=== PATIENT | male | born 1960 | race Caucasian/White ===

== ENCOUNTER 2024-12-30 18:04 | Inpatient (IN) | payer BC ==
[~2024-12-30] VITALS: Ht 167.6 cm; Wt 105.2 kg
--- NOTE | 2024-12-30 18:13 | ELECTROCARDIOGRAPH REPORT ---
[facility] Test Date: 2024-12-30 Test Time: 18:11:15 Pat Name: DARRICK VELEZ Department: EMERGENCY ROOM Room: Gender: M Dump Grader: RAI : 1960 Requested By: OTIS BUSH Order Number: [id number] Reading MD: Measurements Intervals [place] Rate: 91 P: 69 ME: 110 QRS: 70 QRSD: 85 T: 8 QT: 353 QTc: 435 Interpretive Statements Sinus rhythm Borderline short ME interval Low voltage, precordial leads Please click the below link to view image of tracing.
--- NOTE | 2024-12-30 18:31 | RADIOLOGY REPORT ---
CHEST RADIOGRAPH Indication: CP Technique: DI CHEST,SINGLE VIEW Comparison: None FINDINGS: The cardiac silhouette is unremarkable. The lungs demonstrate no pulmonary airspace consolidation. Th e pulmonary vasculature is unremarkable. There is no pleural effusion. There is no pneumothorax. IMPRESSION: No pulmonary airspace consolidation.
--- NOTE | 2024-12-30 18:34 | Physician Documentation ---
History of Present Illness ~ Chief Complaint: Chest Pain Stated Complaint: CHEST PAIN Time Seen by MD: 19:37 HPI This is a 64-year-old male with a history of CAD who presents with two days of chest pain onset after exercise yesterday. Patient admits to cardiac stent placed about seven years ago. Patient states he started having worsening chest pain after he walked down the steps of a doc and then tried to walk back up and felt very short of breath and had exertional chest pain at that time that did resolve mostly with rest. Patient states he does still have some chest pain in the lower left side of his chest. Patient has no other concern or complaint at this time. Medication Reconciliation Allergies: Coded Allergies: niacin (Verified Allergy, Unknown, 12/30/24) Scheduled Abiraterone Acetate (Zytiga), 4 TAB PO DAILY, (Reported) Abiraterone Acetate (Zytiga), 4 TAB PO DAILY, (Reported) Amlodipine Besylate/Benazepril 10/40 MG* (Amlodipine-Benazepril 10/40 MG*), 1 CAP PO DAILY, (Reported) Apremilast (Otezla), 1 TAB PO Q12H, (Reported) Aspirin (Aspirin), 1 TAB PO DAILY, (Reported) Bupropion Hcl SR* (Wellbutrin SR*), 2 TAB PO Q12H, (Reported) Carvedilol* (Coreg*), 1 TAB PO Q12H, (Reported) Clobetasol Propionate/Emoll (Clobetasol Emollient 0.05% Crm), 1 APPLIC TOP Q12H, (Reported) Lisinopril* (Lisinopril*), 1 TAB PO DAILY, (Reported) Naproxen (Naproxen), 1 TAB PO DAILY, (Reported) Omeprazole (Prilosec), 1 CAP PO DAILY, (Reported) Prednisone* (Prednisone*), 1 TAB PO DAILY, (Reported) Rosuvastatin Calcium (Rosuvastatin Calcium), 1 TAB PO HS, (Reported) Semaglutide (Ozempic), 2 MG SUBCUT Q7D, (Reported) Scheduled PRN Diazepam (Diazepam), 1 TAB PO Q12H PRN PRN for anxiety, (Reported) ONDANSETRON ODT 4mg tablet (Ondansetron Odt), 1 TAB PO Q6H PRN PRN for nausea/vomiting, (Reported) Oxycodone Hcl IR* (Oxycodone IR*), 1 TAB PO Q12H PRN PRN for pain, (Reported) Miscellaneous Medications Cyanocobalamin (Vitamin B-12) (Vitamin B12), (Reported) Past Medical History Past Medical History: *CARDIOVASCULAR* Review of Systems ROS As stated above in the HPI, otherwise all systems are reviewed and negative. Constitutional: Denies: chills, fever, weakness Eyes: Denies: pain, blurred vision ENT: Denies: ear pain, nose pain, throat pain, mouth pain Respiratory: Denies: cough, shortness of breath Cardiovascular: Denies: chest pain, palpitations Gastrointestinal: Denies: abdominal pain, nausea, vomiting Genitourinary: Denies: burning, dysuria Male Genitalia: Denies: penile discharge, testicular pain Neurological: Denies: headache, dizziness Musculoskeletal: Denies: pain, swelling Integumentary: Denies: rash, lesions Allergic/Immunologic: Denies: hives, itching Hematologic/Lymphatic: Denies: no symptoms reported Psychiatric: Denies: depression, anxiety Physical Exam Vital Signs: Temperature: 98.5, Source: Temporal, Heart Rate: 90, Respiratory Rate: 16, BP: 187/101, Pulse Oximetry: 99, Weight: 93.000 Oxygen Flow Rate: 0 Physical Exam General: Awake and Alert, no acute distress. HEENT: Conjunctiva pink, Sclera clear, Mucus Membranes moist. Neck: Supple without masses and tenderness. Resp: Unlabored. Lungs clear to auscultation bilaterally. Heart: Regular Rate and rhythm, normal S1 and S2 without murmur, rub or gallop. Abdomen: Soft and non tender no organomegaly Extremities: No cyanosis,clubbing or edema. Skin: Warm and Dry. Progress Results/Orders Results/Orders Orders - ROBINA DIAMOND Hospitalist (12/30/24 20:36) Fill Out Med Reconciliation (12/30/24 20:36) Medications Received in ER Medications (Trade) Dose Ordered Sig/Tierney Route PRN Reason Start Time Stop Time Status Last Admin Dose Admin (Tylenol tablet) 650 mg Q6H PRN PO Fever above 101 12/30/24 21:10 12/30/24 22:35 650 MG Vital Signs 12/30/24 12/30/24 12/30/24 12/30/24 18:08 19:30 19:30 21:10 Temp 98.5 Pulse 90 84 80 Resp 16 18 18 16 B/P (MAP) 187/101 165/95 (118) 146/87 (106) Pulse Ox 99 99 99 O2 Flow Rate 0 0 0 Laboratory Tests Test 12/30/24 18:21 12/30/24 19:52 12/30/24 20:44 White Blood Count 7.8 Red Blood Count 4.56 L Hemoglobin 13.1 L Hematocrit 39.3 L Mean Corpuscular Volume 86.1 Mean Corpuscular Hemoglobin 28.7 Mean Corpuscular Hemoglobin Concent 33.3 Red Cell Distribution Width 16.0 H Platelet Count 232 Mean Platelet Volume 8.6 Neutrophils (%) (Auto) 73.6 Lymphocytes (%) (Auto) 17.5 L Monocytes (%) (Auto) 7.9 Eosinophils (%) (Auto) 0.4 Basophils (%) (Auto) 0.6 Neutrophils # (Auto) 5.8 Lymphocytes # (Auto) 1.4 Monocytes # (Auto) 0.6 Eosinophils # (Auto) 0.0 Basophils # (Auto) 0.0 CBC Comment Sodium Level 144 Potassium Level 3.9 Chloride Level 106 Carbon Dioxide Level 28.8 Anion Gap 9 Blood Urea Nitrogen 19 H Creatinine 1.00 Estimated GFR/1.73 m2 76 BUN/Creatinine Ratio 19.0 Glucose Level 105 H Hemoglobin A1c 5.3 Calcium Level 10.1 Troponin I High Sensitivity 19 22 22 Pro-B-Type Natriuretic Peptide 216 H Albumin 4.0 Triglycerides Level 105 Cholesterol Level 114 LDL Cholesterol 46 L HDL Cholesterol 48 Cholesterol/HDL Ratio 2.4 Chemistry Comments Troponin I High Sens Percent Delta 15 0 Troponin I Hi Sens Absolute Change 3 0 Heart Score: Heart Score Response (Comments) Value History Moderate Suspicious 1 Age 45-64 1 Risk Factors >3 or Hx ASHD 2 Troponin 1-2 x's Normal limit 1 Total 5 Medical Decision Making Findings This is a 64-year-old male with a history of CAD who presents with two days of chest pain onset after exercise yesterday. Patient admits to cardiac stent placed about seven years ago. Patient states he started having worsening chest pain after he walked down the steps of a doc and then tried to walk back up and felt very short of breath and had exertional chest pain at that time that did resolve mostly with rest. Patient states he does still have some chest pain in the lower left side of his chest. Patient has no other concern or complaint at this time. Patient did have heart score of five. Patient's troponins did trend upwards from 19-22 with pro BNP being just over 200. Hospitalist was consulted and patient was admitted for further eval and treatment. Departure Disposition: ADMITTED INPATIENT Admitted to Inpatient Unit: to hospitalist Impression: Primary Impression: Chest pain Qualified Codes: R07.9 - Chest pain, unspecified Condition: Stable Discharge Instructions: Nonspecific Chest Pain, Adult Additional Instructions: Patient did have heart score of five. Patient's troponins did trend upwards from 19-22 with pro BNP being just over 200. Hospitalist was consulted and patient was admitted for further eval and treatment. 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
[2024-12-30 18:45] LABS: MEAN PLATELET VOLUME 8.6 FL (7.4-10.4); RED CELL DISTRIBUTION WIDTH 16.0 % (11.5-14.5)
[2024-12-30 19:13] LABS: CREATININE 1.00 MG/DL (0.60-1.10); PRO BRAIN NATRIURETIC PEPTIDE 216 PG/ML (0-125); TOTAL CARBON DIOXIDE 28.8 MMOL/L (24-32); eCRCL 69 ML/MIN; eGFR 76 ML/MIN
[2024-12-30] MEDS ORDERED: HYDROcodone/acetaminophen 5mg/325mg tablet PO PRN (21:10)
[2024-12-30] MEDS ORDERED: potassium Cl 40MEQ/1/2NS 520ml 520 ML IV PRN (21:10)
[2024-12-30] MEDS ORDERED: HYDROcodone/acetaminophen 10/325mg tab PO PRN (21:10)
[2024-12-30] MEDS ORDERED: magnesium sulf-water 4G/100mL 100 ML IV PRN (21:10)
[2024-12-30] MEDS ORDERED: magnesium hydroxide 30ml (MOM) UD suspension PO PRN (21:10)
[2024-12-30] MEDS ORDERED: magnesium sulf-water 2g/50mL 50 ML IV PRN (21:10)
[2024-12-30] MEDS ORDERED: potassium Cl 20 mEq SR tablet PO PRN (21:10)
[2024-12-30] MEDS ORDERED: magnesium Cl slow-release 64mg tablet PO PRN (21:10)
[2024-12-30] MEDS ORDERED: ondansetron/PF 4mg/2ml inj IV PRN (21:10)
[2024-12-30] MEDS ORDERED: mag hydrox/Alum hydrox/simeth 30ml oral suspension PO PRN (21:10)
[2024-12-30] MEDS ORDERED: aminophylline 250mg/10ml inj. IV PRN (22:05)
[2024-12-30] MEDS ORDERED: metoprolol tartrate 1mg/ml inj IV PRN (22:05)
--- NOTE | 2024-12-30 22:17 | HISTORY AND PHYSICAL-Residence ---
History & Physical Providers to CC Resident Creating Document: TISHA WHITNEY RES ~ History of Present Illness Reason for Admit\Complaint: chest discomfort History of Present Illness This is a 64-year-old male with past medical history of coronary artery disease, hypertension, hyperlipidemia, type 2 diabetes, psoriatic arthritis, prostate cancer status post resection came to the ER in view of chest discomfort after exertion. His chest discomfort started yesterday after he climbed up and down 100 steps. It lasted for a few hours associated with diaphoresis and palpitation. 2/10 on the pain scale, nonradiating, no nausea, dizziness, SOB, cough, headache. He had a similar episode today while he was working on his boat. 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, chemotherapy and radiotherapy Bilateral renal stones MRSA infection-resolved Past Surgical History Surgical History Comment Right testicle removed due to a benign cyst Prostate resection for prostate cancer Bilateral knee surgeries after an accident Past Social History Smoking: Non-Smoker Alcohol Use: Rarely (1-2 drinks a month) Drug Use: None Lives with: Spouse Lives In: Home Domestic Violence: Neg ROS Constitutional: Reports: no symptoms reported Eyes: Reports: no symptoms reported ENT: Reports: no symptoms reported Respiratory: Reports: no symptoms reported Cardiovascular: Reports: chest pain, diaphoresis, palpitations Gastrointestinal: Reports: no symptoms reported Genitourinary: Reports: no symptoms reported Male Genitalia: Reports: no symptoms reported Neurological: Reports: no symptoms reported Musculoskeletal: Reports: no symptoms reported Integumentary: Reports: no symptoms reported Allergic/Immunologic: Reports: no symptoms reported Hematologic/Lymphatic: Reports: no symptoms reported Endocrine: Reports: no symptoms reported Psychiatric: Reports: no symptoms reported Exam Vitals: Vital Signs Date Time Temp Pulse Resp B/P (MAP) Pulse Ox O2 Delivery O2 Flow Rate FiO2 12/30/24 21:25 12/30/24 21:10 80 16 99 0 12/30/24 18:08 98.5 General: General: Well alert, well oriented, not confused, not agitated, not in acute distress, well cooperated during the physical. HEENT: Conjunctive are pink, sclerae clear, no icterus, pupil is equal in both sides, reactive to light, no ear discharge, no pharyngeal erythema or an edema, mouth and lips are dry. Neck: Supple, no JVD, no lymphadenopathy and thyromegaly. Lungs:Equal air entry on both lungs, no additional sounds Heart: S1-S2 regular sinus rhythm and, regular rate, no gallops, no rubs, no murmurs Abdomen: Normal, no guarding no rigidity on deep palpation, no organomegaly No visible peristalsis. Normal bowel sounds Extremities: No obvious deformities, , capillary refill intact, able to wiggle toes both sides, peripheral pulsations are intact on both sides. 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: No focal neurological deficits, no motor and sensory weakness in all 4 extremities, could move all 4 extremities Musculoskeletal: No joint swelling, deformities, inflammations, and no scoliosis and back tenderness Skin: No active skin lesions and rashes Diagnostic Data Last Recorded Lab Results: 12/30/24 1821 12/30/24 182 Counseling Services Smoking & Tobacco Cessation: N/A Advance Care Planning Advanced Care plannin - 30 Minutes (Full code) Additional Plan Assessment:This is a 64-year-old male with past medical history of coronary artery disease, hypertension, hyperlipidemia, type 2 diabetes, psoriatic arthritis, prostate cancer status post resection came to the ER in view of chest discomfort after exertion. Plan: Coronary vascular disease-stable angina Hypertension HEART-3 Chest discomfort on exertion Vitals: Systolic blood pressure ranging from 180s to 150s, heart rate 80s Serial Troponin 19, 22, 22, NT proBNP-216 EKG- no ST-elevation, normal T-wave morphology Chest x-ray- No pulmonary airspace consolidation. Plan: Ordered echo Continue home medication amlodipine 10 mg p.o. daily, carvedilol 12.5 mg p.o. daily, lisinopril 40 mg p.o. daily, aspirin 81 mg p.o. daily Started Lasix 20 mg IV b.i.d. in view of leg swelling Nitro patch 0.4 mg once in view of chest discomfort Input and output monitoring, monitor vitals Ordered Lexiscan for tomorrow, NPO from midnight Type 2 diabetes mellitus Ordered HB A1c Continue home semaglutide 2 g Pen once a week Metastatic prostate cancer s/p resection and radiotherapy. Currently on chemotherapy pills, Continue home med Zytiga 4 pills Daily, Augemilast p.o. daily, lupron shot daily. Small nodule seen on the kidney in the last MRI done one month ago, scheduled for cryoablation and biopsy outpatient Hyperlipidemia Ordered lipid panel Continue rosuvastatin 10 mg p.o. daily Psoriatic arthritis In admission, no active symptoms. Code status: Full code DVT prophylaxis: SCDs Analgesia/sedation: Morphine/Michael as needed Lines/tubes: PIV GI prophylaxis: None Nutrition: 75 g carb controlled diet PT: Ordered Prognosis: Guarded Disposition: Admit to telemetry/PCU Tisha Whitney MD Internal Medicine Resident [facility] Patient seen and evaluated with HIPPA compliant AV device Agree with plan as discussed with the resident Daniel Alcantara MD Date of Service: Dec 30, 2024 Billing Provider: DANIEL ALCANTARA MD, SHIVANI, [facility] Dec 30, 2024 22:17 DANIEL ALCANTARA MD Dec 31, 2024 01:44
[2024-12-30 23:19] LABS: CHOL/HDL RATIO 2.4 (0.00-4.99); LDL CHOLESTEROL 46 MG/DL (50-100)
[2024-12-30] MEDS ORDERED: LISI40TA20 PO (23:35)
[2024-12-30] MEDS ORDERED: OXYC-658 PO (23:35)
[2024-12-30] MEDS ORDERED: BUPR150T8 PO (23:35)
[2024-12-30] MEDS ORDERED: AMLO-139 PO (23:35)
[2024-12-30] MEDS ORDERED: CLOB15CR11 TOP (23:35)
[2024-12-30] MEDS ORDERED: ASPI-1265 PO (23:35)
[2024-12-30] MEDS ORDERED: NAPR-56 PO (23:35)
[2024-12-30] MEDS ORDERED: ROSU10TA72 PO (23:35)
[2024-12-30] MEDS ORDERED: CARV-50 PO (23:35)
[2024-12-30] MEDS ORDERED: ONDA-243 PO (23:35)
[2024-12-30] MEDS ORDERED: ABIR250T PO (23:35)
[2024-12-30] MEDS ORDERED: APRE30TA5 PO (23:35)
[2024-12-30] MEDS ORDERED: DIAZ-351 PO (23:35)
[2024-12-30] MEDS ORDERED: CYAN-116 (23:35)
[2024-12-30] MEDS ORDERED: OMEP40CA21 PO (23:35)
[2024-12-30] MEDS ORDERED: SEMA2PEN SUBCUT (23:35)
[2024-12-30] MEDS ORDERED: PRED5TAB PO (23:35)
[2024-12-30 23:58] VITALS: RESP 19; O2SAT 98
[2024-12-31] VITALS (11 sets, daily range): BP systolic 125–178; BP diastolic 65–93; PULSE 73–109; RESP 13–20; TEMP 97.2–98.2; O2SAT 97–99
[2024-12-31] MEDS ORDERED: NAPR-1168 PO (00:46)
[2024-12-31] MEDS ORDERED: BUPR-559 PO (00:46)
[2024-12-31 05:43] LABS: MEAN PLATELET VOLUME 8.7 FL (7.4-10.4); RED CELL DISTRIBUTION WIDTH 15.6 % (11.5-14.5)
[2024-12-31 05:46] LABS: CREATININE 0.84 MG/DL (0.60-1.10); TOTAL CARBON DIOXIDE 26.7 MMOL/L (24-32); eCRCL 82 ML/MIN; eGFR > 90 ML/MIN
[2024-12-31] MEDS: K and/or MAG REPLACEMENT MC SCH (08:00)
[2024-12-31] MEDS: docusate sod 100mg capsule PO SCH (08:00)
[2024-12-31] MEDS: potassium Cl 20 mEq SR tablet PO PRN (08:14)
[2024-12-31] MEDS: furosemide 10 MG/1 ML 10ml inj IV SCH (08:18)
[2024-12-31] MEDS: regadenoson 0.4mg/5ml syringe IV PRN (08:54)
--- NOTE | 2024-12-31 10:03 | RADIOLOGY REPORT ---
HISTORY: stable angina TECHNIQUE: At peak stress, 8.7 mCi of sestamibi was administered intravenously. Soon thereafter, gated SPECT im aging of the heart was performed with the patient in the supine position. At rest, 34.2 mCi of sestamibi was administered intravenously. Soon thereafter, gated SPECT imaging o f the heart was performed with the patient in the supine position. FINDINGS: The left ventricular myocardium demonstrates uniform radiotracer distribution, without perfusion defe ct. The left ventricular cavity is normal in size. Calculated LVEF is 52 %. No segmental wall motion abno rmality. IMPRESSION: NORMAL MYOCARDIAL PERFUSION EXAM. LVEF 52 %.
--- NOTE | 2024-12-31 13:28 | PROGRESS NOTE- Residence ---
Progress Note - Resident Providers to CC Resident Creating Document: UNA ADDISON RES ~ Antibiotic Timeout Antibiotic Ordered?: No Subjective Patient was seen and examined at bedside, He is feeling much better, initially in the morning he had some chest discomfort,Currently he he reports no chest pain and SOB, had discussion about cardiology consult for possibility of coronary angiogram, but he wants to follow up with his own keyboard action assembler in [place] Objective Vital Signs Date Time Temp Pulse Resp B/P (MAP) Pulse Ox O2 Delivery O2 Flow Rate FiO2 12/31/24 09:01 85 18 154/89 97 Room Air 0.0 12/31/24 06:00 97.5 Result Diagram: 12/31/2444912/31/24449 General: awake, alert oriented to place, time, and person HEENT: No pallor present, no icterus, moist mucous membranes Neck: No masses and tenderness Resp: Unlabored. Lungs clear to auscultation bilaterally. Chest: Normal expansion. Cardiovascular: Regular Rate and rhythm, normal S1 and S2 without murmur, rub or gallop Abdomen: Soft and non tender in epigastrium, no organomegaly, no guarding and rigidity, bowel sounds present Neuro: No focal weakness in the upper and lower limb muscles, power of the muscles 5/5 bilateral upper and lower extremities, normal reflexes bilaterally. Cranial nerves intact Extremities: No cyanosis,clubbing or edema Skin: Warm and Dry. No lesions Psych: Normal affect Coagulation Studies Laboratory Tests Test 12/31/24 04:50 D-Dimer 0.35 MG/L FEU (0-0.50) D-Dimer Comment Plan Plan This is a 64-year-old male with past medical history of coronary artery disease, hypertension, hyperlipidemia, type 2 diabetes, psoriatic arthritis, prostate cancer status post resection came to the ER in view of chest discomfort after exertion. His chest discomfort started yesterday after he climbed up and down 100 steps. It lasted for a few hours associated with diaphoresis and palpitation. 2/10 on the pain scale, nonradiating, no nausea, dizziness, SOB, cough, headache. He had a similar episode today while he was working on his boat. Plan Chest Pain equivalent to Angina. Significant risk factors present hypertension, obesity, male gender and coronary artery disease. Serial Trops negative, Pro Bnp 216 Lexiscan performed today which the left ventricular myocardium demonstrates uniform radiotracer distribution, without perfusion defect,the left ventricular cavity is normal in size. Calculated LVEF is 52 %. No segmental wall motion abnormality. Echo was performed showed Normal LV size and wall thickness. Overall systolic function is normal. LVEF is 55-60%. EKG- no ST-elevation, normal T-wave morphology. Acute Coronary syndrome less likey as trops negative, lexiscan shows no perfusion defect. Isosorbide mononitrate 30 mg Follow up with TSH. Coronary Artery Disease s/p stents Continue aspirin 81 mg Continue coreg 12.5 mg Follow up with lipid panel Placed patient on heart healthy diet Hypertension Take amlodipine 10 mg and lisinopril 40 mg Monitor Blood pressure Type 2 diabetes Mellitus HbA1c: 5.3 Held ozempic at this moment. Prostate Cancer Continue zytiga 250 mg 4 tab Continue Prednisone Hyperlipidemia Continue Rosuvastatin 10 mg LDL is 46 Goal of LDL in patient with coronary artery disease is <70. Psoriatric Arhritis Continue Otelza 30 mg. Dvt Prophylaxis: Heparin Code Status: Full Code Una Addison PGY1 Resident Date of Service: Dec 31, 2024 Billing Provider: LJ MICHEL MD,UNA, RES Dec 31, 2024 13:28
[2024-12-31] MEDS: isosorbide mononitrate 30mg tab.SR.24H PO SCH (15:14)
[2024-12-31] MEDS ORDERED: CYAN100087 PO (15:52)
[2024-12-31] MEDS ORDERED: NITR0.4T51 SL (16:43)
[2024-12-31] MEDS ORDERED: ISOS30TA84 PO (16:43)
--- NOTE | 2024-12-31 17:01 | DISCHARGE SUMMARY-Residence ---
Discharge Summary Providers to CC Resident Creating Document: STEFANO GREENE, HERBERT ~ Discharge Summary Admission Diagnosis: STABLE ANGINA Hospital Course DATE OF ADMISSION: 12/30/2024 DATE OF DISCHARGE:12/31/2024 Imaging Lexiscan shows:The left ventricular myocardium demonstrates uniform radiotracer distribution, without perfusion defect. The left ventricular cavity is normal in size. Calculated LVEF is 52 %. No segmental wall motion abnormality. IMPRESSION: NORMAL MYOCARDIAL PERFUSION EXAM. LVEF 52 %. Echo shows: Normal LV size and wall thickness. Overall systolic function is normal. LVEF is 55-60%. Chest X-Ray: No pulmonary airspace consolidation. Discharge Diagnosis\Comment: Stable angina Prostate Cancer Hypertension Psoriatic arthritis CAD S/P stents Operations\Procedures: Venkatesh Consultants: none Complications: none Condition on DC: Stable New Medications: Isosorbide Mononitrate (Isosorbide Mononitrate Er) 30 Mg Tab.er.24h 30 MG PO DAILY, #30 TAB.SR Nitroglycerin SL* (Nitrostat SL*) 0.4 Mg Tablet 0.4 MG SL Q5MIN PRN for chest pain, #14 TAB Continued Medications: Abiraterone Acetate (Zytiga) 250 Mg Tablet 4 TAB PO DAILY for 30 Days, #120 TAB 0 Refills Amlodipine Besylate/Benazepril 10/40 MG* (Amlodipine-Benazepril 10/40 MG*) 10 Mg/40 Mg Capsule 1 CAP PO DAILY for 30 Days, #30 CAP Apremilast (Otezla) 30 Mg Tablet 1 TAB PO Q12H for 30 Days, #60 TAB 0 Refills Aspirin (Aspirin) 81 Mg Tab.chew 1 TAB PO DAILY for 30 Days, #30 TAB Bupropion HCl (Bupropion Xl) 300 Mg Tab.er.24h 1 PO DAILY Carvedilol* (Coreg*) 12.5 Mg Tablet 1 TAB PO Q12H for 30 Days, #60 TAB Clobetasol Propionate/Emoll (Clobetasol Emollient 0.05% Crm) 0.05 % Cream..g. 1 APPLIC TOP Q12H for 15 Days, #60 GM 0 Refills Cyanocobalamin (Vitamin B-12) (Vitamin B-12) 1,000 Mcg/Ml Drops 1000 MCG PO DAILY, DROP Lisinopril* (Lisinopril*) 40 Mg Tablet 1 TAB PO DAILY for 30 Days, #30 TAB Naproxen (Naproxen) 500 Mg Tablet 1 TAB PO BID Omeprazole (Prilosec) 40 Mg Capsule 1 CAP PO DAILY for 30 Days, #30 CAP Prednisone* (Prednisone*) 5 Mg Tablet 1 TAB PO DAILY for 30 Days, #30 TAB 0 Refills Rosuvastatin Calcium (Rosuvastatin Calcium) 10 Mg Tablet 1 TAB PO HS for 30 Days, #30 TAB 0 Refills Semaglutide (Ozempic) 2 Mg/0.75 Ml (8 Mg/3 Ml) Pen.injctr 2 MG SUBCUT Q7D for 30 Days, #3 ML 0 Refills Discharge Summary: Hospital Course Patient presents with complain of chest pain, ECG was performed which was not significant, no ST-elevation. Further cardiac workup was done in view of chest pain and history of CAD status post stent placement: Lexiscan with the results as below, negative troponins, normal lipid panel. Patient's chest pain was managed with sublingual nitroglycerin and Imdur. Simultaneously, PE was ruled out as D-dimer was negative, hypokalemia was managed per protocol - replaced. he was also offered cardiology consult for possible coronary angiogram but he said that he will follow up with his own punch card operator in [place] for that. Patient is medically stable for discharge to home. Physical Examination at discharge General: awake, alert oriented to place, time, and person HEENT: No pallor present, no icterus, moist mucous membranes Neck: No masses and tenderness Resp: Unlabored. Lungs clear to auscultation bilaterally. Chest: Normal expansion. Cardiovascular: Regular Rate and rhythm, normal S1 and S2 without murmur, rub or gallop Abdomen: Soft and mildly tender in epigastrium, no organomegaly, no guarding and rigidity, bowel sounds present Neuro: No focal weakness in the upper and lower limb muscles, power of the muscles 5/5 bilateral upper and lower extremities, normal reflexes bilaterally. Cranial nerves intact Extremities: No cyanosis,clubbing or edema Skin: Warm and Dry. Psych: Normal affect Labs WBC: 5.9 Hgb: 12.3 Hct: 36.8 Creatinine: 0.84 K: 3.3 LDL: 46 Imaging: Lexiscan: IMPRESSION:NORMAL MYOCARDIAL PERFUSION EXAM. Echo: Normal LV size and wall thickness. Overall systolic function is normal. LVEF is 55-60%. Chest x-ray: No pulmonary airspace consolidation. Discharge medications can be found above and patient was sent home with the following recommendations: Follow up with your punch card operator within two weeks. Your workup for chest pain/acute coronary syndrome was negative. Lexiscan was negative EF is 55-60%. Your LDL is 46 hence continue the current dose of statin. We have added Imdur to help with your chest pain and PRN sublingual nitroglycerin for the chest pain. Condition worsens call 911 or go to the nearest ER immediately. Consider outpatient follow up for coronary angiogram with your punch card operator. Discontinued Otelza I called patient today on 01/01/2025 and told him to stop taking otelza, i explained him side effects of taking otelza with nitrates and told him to stop otelza until you see punch card operator and he will manage nitrates further. Stefano Greene PGY1- Resident Internal Medicine Discharge summary reviewed and edited as above Sarah Bhandari MD Internal Medicine, PGY 2 *Problems/Diagnosis: (1) Chest pain Status: Resolved Total Time Spent on D/C: Up to 30 Minutes Date of Service: Dec 31, 2024 Billing Provider: LJ MICHEL MD Problem Qualifiers (1) Chest pain: Chest pain type: unspecified Qualified Codes: R07.9 - Chest pain, unspecified STEFANO GREENE, RES Dec 31, 2024 17:01 SARAH BHANDARI, RES Dec 31, 2024 18:16
--- NOTE | 2024-12-31 18:36 | CARDIOLOGY REPORT ---
APPROVED REPORT EXAM: Comprehensive 2D, Doppler, and color-flow Echocardiogram. Patient Location: 3026 A Heart Rate: 70's bpm Rhythm: SINUS Indications CHEST PAIN STENT x1 2018 HYPERTENSION DIABETES MELLITUS [employer] Display Specialist: OUT OF AREA Previous echo: OUT OF AREA 2D Dimensions IVSd 1.1 (0.7-1.1cm) LVDd 5.5 cm PWd 1.0 (0.7-1.1cm) IVSs 1.2 (0.8-1.2cm) LVDs 4.7 (2.5-4.0cm) PWs 1.3 (0.8-1.2cm) LVOT Diameter 2.02 (1.8-2.4cm) FS (%) 14.8 % SV 45.4 ml CO 3.4 L/min M-Mode Dimensions Left Atrium(MM) 4.37 (2.5-4.0cm) Aortic Root 3.38 (2.2-3.7cm) Aortic Cusp Exc 1.94 (1.5-2.0cm) Aortic Valve AoV Peak Eric. 165.9 cm/s AoV VTI 30.8 cm AO Peak GR. 11.0 mmHg AO Mean GR. 7 mmHg LVOT VTI 20.91 cm LVOT Peak Eric. 105.1 cm/s MICHELLE(VTI)/BSA 2.18 cm2/m2 MICHELLE (VTI) 2.18 cm2 Mitral Valve MV E Velocity 74.2 cm/s MV Peak Gr. 4 mmHg MV DECEL TIME 168 ms MV A Velocity 79.9 cm/s MV PHT 60 ms E/A Ratio 0.9 MVA (PHT) 3.67 cm2 MV XMnd103.4 cm/s Tricuspid Valve RAP ESTIMATE 10 mmHg LEFT VENTRICLE Normal LV size and wall thickness. Overall systolic function is normal. LVEF is 55-60%. RIGHT VENTRICLE RV appears normal in size with normal function. ATRIA Left atrium is mildly dilated. AORTIC VALVE Trileaflet AV appears mildly sclerotic without stenosis. No insufficiency. MITRAL VALVE Mild MV annular calcification without stenosis. Trace regurgitation. TRICUSPID VALVE TV appears structurally normal with trace regurgitation. PULMONIC VALVE Normal PV without stenosis, physiologic insufficiency. GREAT VESSELS The aortic root is normal in size. IVC is not well visualized. PERICARDIUM Normal pericardium. No effusion. Other Information Study Quality: Adequate Conclusion Normal LV size and wall thickness. Overall systolic function is normal. LVEF is 55-60%. RV appears normal in size with normal function. Left atrium is mildly dilated. Trileaflet AV appears mildly sclerotic without stenosis. No insufficiency. Mild MV annular calcification without stenosis. Trace regurgitation. TV appears structurally normal with trace regurgitation. Normal pericardium. No effusion.
[2024-12-31] MEDS ORDERED: clobetasol 0.05% cream 30gm TP SCH (20:00)
--- NOTE | 2024-12-31 22:19 | HISTORY AND PHYSICAL-Residence ---
History & Physical Providers to ~ History of Present Illness Allergies: Coded Allergies: niacin (Verified Allergy, Unknown, 12/30/24) Home Medications Home Medications Active Nitrostat SL* (Nitroglycerin) 0.4 Mg Tablet 0.4 Mg SL Q5MIN PRN Isosorbide Mononitrate Er (Isosorbide Mononitrate) 30 Mg Tab.er.24h 30 Mg PO DAILY Reported Vitamin B-12 (Cyanocobalamin (Vitamin B-12)) 1,000 Mcg/Ml Drops 1,000 Mcg PO DAILY Naproxen 500 Mg Tablet 1 Tab PO BID Bupropion Xl (Bupropion HCl) 300 Mg Tab.er.24h 1 PO DAILY Lisinopril* (Lisinopril) 40 Mg Tablet 1 Tab PO DAILY 30 Days Prilosec (Omeprazole) 40 Mg Capsule 1 Cap PO DAILY 30 Days Ozempic (Semaglutide) 2 Mg/0.75 Ml (8 Mg/3 Ml) Pen.injctr 2 Mg SUBCUT Q7D 30 Days Coreg* (Carvedilol) 12.5 Mg Tablet 1 Tab PO Q12H 30 Days Rosuvastatin Calcium 10 Mg Tablet 1 Tab PO HS 30 Days Prednisone* (Prednisone) 5 Mg Tablet 1 Tab PO DAILY 30 Days Amlodipine-Benazepril 10/40 MG* (Amlodipine/Benazepril HCl) 10 Mg/40 Mg Capsule 1 Cap PO DAILY 30 Days Otezla (Apremilast) 30 Mg Tablet 1 Tab PO Q12H 30 Days Zytiga (Abiraterone Acetate) 250 Mg Tablet 4 Tab PO DAILY 30 Days Clobetasol Emollient 0.05% Crm (Clobetasol Propionate) 0.05 % Cream..g. 1 Applic TOP Q12H 15 Days Aspirin 81 Mg Tab.chew 1 Tab PO DAILY 30 Days Family History Family History: Cervical cancer MOTHER FH: stroke MOTHER FHx: COPD (chronic obstructive pulmonary disease) FATHER Past Social History Smoking: Non-Smoker Alcohol Use: Rarely (1-2 drinks a month) Drug Use: None Lives with: Spouse Lives In: Home Domestic Violence: Neg ROS Constitutional: Reports: no symptoms reported Eyes: Reports: no symptoms reported ENT: Reports: no symptoms reported Respiratory: Reports: no symptoms reported Cardiovascular: Reports: chest pain, diaphoresis, palpitations Gastrointestinal: Reports: no symptoms reported Genitourinary: Reports: no symptoms reported Male Genitalia: Reports: no symptoms reported Neurological: Reports: no symptoms reported Musculoskeletal: Reports: no symptoms reported Integumentary: Reports: no symptoms reported Allergic/Immunologic: Reports: no symptoms reported Hematologic/Lymphatic: Reports: no symptoms reported Endocrine: Reports: no symptoms reported Psychiatric: Reports: no symptoms reported Exam Vitals: Vital Signs Date Time Temp Pulse Resp B/P (MAP) Pulse Ox O2 Delivery O2 Flow Rate FiO2 12/31/24 11:00 98.1 83 13 141/65 (90) 98 Room Air 12/31/24 09:01 0.0 Diagnostic Data Last Recorded Lab Results: 12/31/24 0450 12/31/24 0450 Diagnostic Data: Laboratory Tests Test 12/31/24 04:50 D-Dimer 0.35 MG/L FEU (0-0.50) D-Dimer Comment Problems: (1) Chest pain Status: Resolved Problem Qualifiers (1) Chest pain: Chest pain type: unspecified Qualified Codes: R07.9 - Chest pain, unspecified UNA ADDISON, RES Dec 31, 2024 22:19
[2025-01-01] MEDS ORDERED: pantoprazole 40mg Tablet.DR PO SCH (07:30)
[2025-01-01] MEDS ORDERED: ABIRATERONE ACETATE 250 MG PO SCH (08:00)
== END 2024-12-31 15:10 | disposition home or self-care (01) | DRG 303 ==
LOC: ER 18:06 → ED HOLD 21:12 → EDBEDREQ 22:58 → PCU 3S 23:49
PROVIDERS: ADMIT Internal Medicine; ATTEND Family Medicine
PROC: 4A02XM4 Measurement of Cardiac Total Activity, External Approach (ICD-10-PCS; principal; 2024-12-31)
PROC: 3E033HZ Introduction of Radioactive Substance into Peripheral Vein, Percutaneous Approach (ICD-10-PCS; 2024-12-31)
DX: I25.118 Atherosclerotic heart disease of native coronary artery with other forms of angina pectoris (principal); I10 Essential (primary) hypertension; E11.9 Type 2 diabetes mellitus without complications; E78.5 Hyperlipidemia, unspecified; Z88.8 Allergy status to other drugs, medicaments and biological substances; Z79.82 Long term (current) use of aspirin; Z79.899 Other long term (current) drug therapy; Z85.46 Personal history of malignant neoplasm of prostate; Z92.21 Personal history of antineoplastic chemotherapy; Z92.3 Personal history of irradiation
CPT/HCPCS: 36415; 71045; 78452; 80048; 80053; 80061; 83036; 83735; 83880; 84443; 84484; 85025; 85379; 87081; 93005; 93017; 93306; 99285; A9500; G0378; J1938; J2785